=== PATIENT | female | born 1960 | race Caucasian/White ===

== ENCOUNTER 2024-08-20 17:24 | Emergency (ER) | payer OTHER, SELFPAY ==
[2024-08-20] MEDS ORDERED: MAGNES/ALUMIN/SIMET 30ML UCUP ONE (18:49)
[2024-08-20] MEDS ORDERED: FAMOTIDINE 20 MG/2 ML VIAL IV ONE (18:49)
[2024-08-20] MEDS ORDERED: LIDOCAINE VISCOUS 2% 10ML ORAL SOLN ONE (18:50)
[2024-08-20 18:53] LABS: Absolute Basophils 0.1 K/uL (0-0.5); Absolute Eosinophils 0.1 K/uL (0-0.5); Absolute Lymphocytes (CBC) 2.5 K/uL (0.7-4.9); Absolute Monocytes 0.9 K/uL (0.1-1.3); Absolute Neutrophil 6.7 K/uL (1.8-8.0); Eosinophils % 1.3 % (0-4.4); Hematocrit 43.5 % (36.0-45.0); Lymphocytes % 24.4 % (15.3-44.8); MCHC 34.5 g/dL (32.0-36.0); MCV 101.4 fL (80-100); MPV 7.1 fL (7.6-11.3); Neutrophils % 64.3 % (41.7-73.7); Platelets 543 thou/uL (152-406); RBC Red Blood Cell Count 4.29 M/uL (3.86-4.86); Red Cell Distribution Width 13.5 % (12.1-15.2)
[2024-08-20 19:00] LABS: PT Prothrombin Time 11.3 SECONDS (10-13.0); Protime INR 0.99
--- NOTE | 2024-08-20 19:04 | RAD REPORT ---
EXAMINATION: ONE VIEW CHEST XR CLINICAL INDICATION: Female, 64 years old.,CHEST PAIN TECHNIQUE: Frontal chest projection is submitted. Examination is limited by patient positioning and t echnique. COMPARISON: No prior exam. FINDINGS: The lungs are well inflated and clear. No pneumothorax or sizable effusion. The heart is normal in s ize. Mediastinal contours are unremarkable. IMPRESSION: No acute intrathoracic abnormalities.
[2024-08-20 19:14] LABS: ALT/SGPT 23 U/L (13-56); AST/SGOT 11 U/L (15-37); Albumin 3.8 g/dL (3.4-5.0); Albumin/Globulin Ratio 0.9 (1.1-1.8); Alkaline Phosphatase 72 U/L (45-117); Anion Gap 8.8 mEq/L (5.0-15.0); BUN Blood Urea Nitrogen 14 mg/dL (7-18); Bicarbonate 26 mEq/L (21-32); Bilirubin Total 0.3 mg/dL (0.2-1.0); Globulin 4.1 g/dL (2.3-3.5); Glomerular Filtration Rate 77 ml/min (=/>90); Glucose Level 96 mg/dL (74-106); NT PRO-BNP 24 pg/mL (<125); Potassium 3.8 mEq/L (3.5-5.1); Protein, Total 7.9 g/dL (6.4-8.2); Sodium Level 135 mEq/L (136-145)
[2024-08-20 19:20] LABS: Bilirubin Direct < 0.2 mg/dL (0-0.2); Bilirubin Indirect, Calculated 0.1 mg/dL (0.2-0.8)
--- NOTE | 2024-08-20 19:22 | RAD REPORT ---
EXAMINATION: US Abdomen Exam Limited CLINICAL HISTORY: [facility] chest pain Bed Name: 10 COMPARISON: None. TECHNIQUE: Limited upper abdominal grayscale and color flow sonographic images. FINDINGS: Gallbladder: Small isoechoic polyp along the antidependent wall measuring 6 mm. No gallstones. No wal l thickening or pericholecystic fluid. Suboptimal distention limits evaluation. Negative sonographic Henry sign. Bile ducts: No intrahepatic or extrahepatic biliary dilatation. Common bile duct measures 5 mm. Liver: Visualized portions of the liver demonstrate normal echogenicity with no suspicious findings. Fluid: No ascites. IMPRESSION: Small gallbladder polyp. No cholelithiasis or findings of acute cholecystitis.
--- NOTE | 2024-08-20 19:30 | EDPHYS ---
Physician Documentation [facility] Name: Kristel Patel Age: 64 yrs Sex: Female : 1960 Arrival Date: 08/20/2024 Time: 17:24 Bed 4 Private MD: ED Physician Vik Fulton HPI: 08/20 18:33 This 64 yrs old Female presents to ER via Ambulatory with complaints of Chest Pain. rn 18:33 The patient or guardian reports chest pain that is located primarily in the substernal rn area. Onset: 1 month(s) ago. Patient reports sent in by PCP for chest pain. Has been having intermittent episodes of chest pain, substernal, nonradiating for about a month. Constant today since 3 PM. No fever or chills. Patient is a smoker and has hypertension. No known cardiac problems. Denies abdominal pain. Patient does report she bought some antacid/GI medication but not sure if it has been helping. Denies pain after eating.. Historical: - Allergies: 17:38 Doxycycline; ll1 17:38 Keflex; ll1 - PMHx: 17:38 Hypertensive disorder; Hypothyroidism; ll1 - PSHx: 17:38 hysterectomy; bladder suspension; ll1 - Immunization history:: Adult Immunizations up to date. - Infectious Disease History:: Denies. - Social history:: Smoking status: Patient reports the use of cigarette tobacco products, smokes one-half pack cigarettes per day, smokes one pack cigarettes per day. - Family history:: not pertinent. - Hospitalizations: : No recent hospitalization is reported. ROS: 18:34 Constitutional: Negative for fever, chills, and weight loss, Neck: Negative for injury, rn pain, and swelling, Cardiovascular: Positive for chest pain Respiratory: Negative for shortness of breath, cough, wheezing, and pleuritic chest pain, Abdomen/GI: Negative for abdominal pain, nausea, vomiting, diarrhea, and constipation, Back: Negative for injury and pain, MS/Extremity: Negative for injury and deformity, Skin: Negative for injury, rash, and discoloration, Neuro: Negative for headache, weakness, numbness, tingling, and seizure, Exam: 18:34 Constitutional: This is a well developed, well nourished patient who is awake, alert, rn and in no acute distress. Cardiovascular: Regular rate and rhythm. No pulse deficits. Respiratory: Clear bilateral breath sounds. No retractions Abdomen/GI: Soft, nontender MS/ Extremity: Pulses equal, no cyanosis. Neuro: Awake and alert, GCS 15 18:45 ECG was reviewed by the Attending Physician. rn Vital Signs: 17:39 BP 156 / 100; Pulse 70; Resp 18; Temp 97.9; Pulse Ox 100% ; Weight 54.88 kg; Height 5 ll1 ft. 3 in. ; Pain 8/10; 19:00 BP 166 / 94; Pulse 71; Resp 16; Temp 98.2; Pulse Ox 96% ; me1 17:39 Body Mass Index 21.43 (54.88 kg, 160.02 cm) ll1 17:39 Pain Scale: Adult ll1 MDM: 17:33 Medical Screening Exam initiated rn 19:27 Differential diagnosis: acute myocardial infarction, acute pericarditis, anxiety, rn coronary artery disease costochondritis, esophagitis, gastritis, gastroesophageal reflux disease (GERD), pleurisy, pneumothorax, stable angina. HEART Score: History: Slightly Suspicious (0), ECG: Non specific repolarization disturbance / LBTB / PM (1), Age: > 45 and < 65 years (1), Risk Factors: 1 or 2 risk factors (1), Troponin: < or = 1 x Normal Limit (0), Total Score = 3. Data reviewed: vital signs, nurses notes, lab test result(s), EKG, radiologic studies, plain films, and as a result, I will. Data reviewed: and as a result, I will admit patient. Consideration of Admission/Observation Escalation of care including admission/observation considered. Counseling: I had a detailed discussion with the patient and/or guardian regarding the historical points, exam findings, and any diagnostic results supporting the discharge/admit diagnosis, lab results, radiology results, the need for further work-up and treatment in the hospital. ED course: Patient states chest pain completely resolved after GI cocktail. States pretty much worked instantly. Troponin is negative and ECG without ischemia. Recommended admission for full cardiac workup and patient declines. Patient does not want to stay in the hospital. She request antacid medication and will make cardiology appointment as outpatient. Return precautions given and understood. Patient understands risk of going home without further workup and admission.. 08/20 17:35 Order name: Basic Metabolic Panel; Complete Time: 19:21 rn 08/20 17:35 Order name: CBC with Diff; Complete Time: 19:21 rn 08/20 17:35 Order name: LFT's; Complete Time: 19:21 rn 08/20 17:35 Order name: NT PRO-BNP; Complete Time: 19:21 rn 08/20 17:35 Order name: PT-INR; Complete Time: 19:21 rn 08/20 17:35 Order name: Troponin HS; Complete Time: 19:21 rn 08/20 17:35 Order name: XRAY Chest (1 view); Complete Time: 19:21 rn 08/20 17:49 Order name: US Abdomen Limited; Complete Time: 19:22 ll1 08/20 17:35 Order name: EKG; Complete Time: 17:36 rn 08/20 17:35 Order name: Cardiac monitoring; Complete Time: 18:53 rn 08/20 17:35 Order name: EKG - Nurse/Tech; Complete Time: 17:46 rn 08/20 17:35 Order name: IV Saline Lock; Complete Time: 18:47 rn 08/20 17:35 Order name: Labs collected and sent; Complete Time: 18:47 rn 08/20 17:35 Order name: O2 Per Protocol; Complete Time: 18:47 rn 08/20 17:35 Order name: O2 Sat Monitoring; Complete Time: 18:47 rn EC:45 Rate is 79 beats/min. Rhythm is regular. QRS [place] is Normal. [place] interval is normal. QRS rn interval is normal. QT interval is normal. No Q waves. T waves are Normal. No ST changes noted. Clinical impression: NSR w/ Non-specific ST/T Changes. Interpreted by me. Reviewed by me. Administered Medications: 18:53 Drug: GI Cocktail without - (Maalox PO 30 ml, Lidocaine Mucous Membrane 2 % 15 me1 ml) PO once Route: PO; 19:27 Follow up: Response: No adverse reaction; Pain is decreased me1 18:53 Drug: Famotidine IVP 10 mg IVP once; dilute with 10 mL 0.9% NaCl; give over 2 minutes me1 Route: IVP; Site: right antecubital; 19:27 Follow up: Response: No adverse reaction me1 Disposition Summary: 08/20/24 19:29 Discharge Ordered Notes: Location: Home rn Problem: new rn Symptoms: have improved rn Condition: Stable rn Diagnosis - Chest pain, unspecified rn Followup: rn - With: Rishi Prasad MD - When: As needed - Reason: Recheck today's complaints, Re-evaluation by your physician Discharge Instructions: - Discharge Summary Sheet rn - Nonspecific Chest Pain, Adult rn Forms: - Medication Reconciliation Form rn - Antibiotic external auditor - Prescription Opioid Use rn - Patient Portal Instructions rn - Leadership Thank You Letter rn Prescriptions: - Protonix 40 mg Oral Tablet - take 1 tablet ORAL route once daily; 30 tablet; Refills: 0, Product Selection rn Permitted Signatures: Dispatcher [employer] EDIA Vik Fulton MD MD rn Lewis, Lynsay RN RN ll1 Aisha Varghese RN RN me1 Corrections: (The following items were deleted from the chart) 17:36 17:36 BASIC METABOLIC PANEL+C.LAB.BRZ ordered. EDIA EDMS 17:36 17:36 CBC+H.LAB.BRZ ordered. EDIA EDMS 17:36 17:36 HEPATIC FUNCTION+C.LAB.BRZ ordered. EDMS EDMS 17:36 17:36 PROBNP+C.LAB.BRZ ordered. EDMS EDMS 17:36 17:36 PROTIME (+INR)+COAG.LAB.BRZ ordered. EDIA EDMS 17:36 17:36 Troponin High Sensitivity+C.LAB.BRZ ordered. EDMS EDMS 18:34 18:34 Constitutional: Negative for fever, chills, and weight loss, Cardiovascular: rn Positive for chest pain Respiratory: Negative for shortness of breath, cough, wheezing, and pleuritic chest pain, Abdomen/GI: Negative for abdominal pain, nausea, vomiting, diarrhea, and constipation, MS/Extremity: Negative for injury and deformity, Skin: Negative for injury, rash, and discoloration, Neuro: Negative for headache, weakness, numbness, tingling, and seizure, rn
--- NOTE | 2024-08-20 19:30 | ER ---
Nurse's Notes [facility] Name: Kristel Patel Age: 64 yrs Sex: Female : 1960 Arrival Date: 08/20/2024 Time: 17:24 Bed 4 Private MD: Diagnosis: Chest pain, unspecified Presentation: 08/20 17:39 Chief complaint: Patient states: CP for 1 month, more constant today. Coronavirus ll1 screen: Client denies travel out of the [place] in the last 14 days. At this time, the client does not indicate any symptoms associated with coronavirus-19. Ebola Screen: Patient denies travel to an Ebola-affected area in the 21 days before illness onset. Initial Sepsis Screen: Does the patient meet any 2 criteria? No. Patient's initial sepsis screen is negative. Does the patient have a suspected source of infection? No. Patient's initial sepsis screen is negative. Risk Assessment: Do you want to hurt yourself or someone else? Patient reports no desire to harm self or others. Onset of symptoms was July 21, 2024. 17:39 Method Of Arrival: Ambulatory ll1 17:39 Acuity: TYRON 3 ll1 Triage Assessment: 17:46 General: Appears uncomfortable, Behavior is calm, cooperative, appropriate for age. ll1 Pain: Complains of pain in chest Pain currently is 8 out of 10 on a pain scale. Quality of pain is described as sharp. Cardiovascular: Reports chest pain, Chest pain is described as mild, quality is sharp, radiates back. Historical: - Allergies: 17:38 Doxycycline; ll1 17:38 Keflex; ll1 - PMHx: 17:38 Hypertensive disorder; Hypothyroidism; ll1 - PSHx: 17:38 hysterectomy; bladder suspension; ll1 - Immunization history:: Adult Immunizations up to date. - Infectious Disease History:: Denies. - Social history:: Smoking status: Patient reports the use of cigarette tobacco products, smokes one-half pack cigarettes per day, smokes one pack cigarettes per day. - Family history:: not pertinent. - Hospitalizations: : No recent hospitalization is reported. Screenin:15 [facility] ED Fall Risk Assessment (Adult) History of falling in the last 3 months, me1 including since admission No falls in past 3 months (0 pts) Confusion or Disorientation No (0 pts) Intoxicated or Sedated No (0 pts) Impaired Gait No (0 pts) Mobility Assist Device Used No (0 pt) Altered Elimination No (0 pt) Score/Fall Risk Level 0 - 2 = Low Risk Maintained a safe environment, Provided non-skid footwear, Hourly rounding (assess needs \T\ fall precautionary measures) done. Abuse screen: Denies threats or abuse. Nutritional screening: No deficits noted. Tuberculosis screening: No symptoms or risk factors identified. Assessment: 18:11 Reassessment: No changes from previously documented assessment. Patient and/or family ll1 updated on plan of care and expected duration. Pain level reassessed. 18:15 General: Appears uncomfortable, well groomed, well developed, well nourished, Behavior me1 is calm, cooperative, appropriate for age, Reports CP for 1 month, more constant today. Pain: Complains of pain in epigastric area Pain does not radiate. Pain currently is 5 out of 10 on a pain scale. at worst was 10 out of 10 on a pain scale. Quality of pain is described as burning, Pain began gradually, Is continuous. Neuro: Level of Consciousness is awake, alert, obeys commands, Oriented to person, place, time, situation, Appropriate for age. Cardiovascular: Patient's skin is warm and dry. Cardiovascular: Reports chest pain. Respiratory: Airway is patent Respiratory effort is even, unlabored, Respiratory pattern is regular, symmetrical. Respiratory: GI: Reports upper abdominal pain, bloating, indigestion. : No signs and/or symptoms were reported regarding the genitourinary system. EENT: No signs and/or symptoms were reported regarding the EENT system. Derm: Skin is intact, is healthy with good turgor, Skin is pink, warm \T\ dry. Musculoskeletal: No signs and/or symptoms reported regarding the musculoskeletal system. Vital Signs: 17:39 BP 156 / 100; Pulse 70; Resp 18; Temp 97.9; Pulse Ox 100% ; Weight 54.88 kg; Height 5 ll1 ft. 3 in. ; Pain 8/10; 19:00 BP 166 / 94; Pulse 71; Resp 16; Temp 98.2; Pulse Ox 96% ; me1 17:39 Body Mass Index 21.43 (54.88 kg, 160.02 cm) [facility] 17:39 Pain Scale: Adult ll1 ED Course: 17:29 Patient arrived in ED. gl 17:33 Vik Fulton MD is Attending Physician. rn 17:40 Triage completed. ll1 17:46 Arm band placed on. EKG completed in triage. Results shown to MD. ll1 17:59 XRAY Chest (1 view) In Process Unspecified. EDMS 18:11 Patient placed in an exam room, on a stretcher. ll1 18:15 Patient has correct armband on for positive identification. Bed in low position. Call me1 light in reach. Side rails up X 1. Provided Education on: POC. Verbalized understanding.. Client placed on continuous cardiac and pulse oximetry monitoring. NIBP monitoring applied. clinical research monitor on. Pulse ox on. NIBP on. 18:15 No provider procedures requiring assistance completed. Patient maintains SpO2 me1 saturation greater than 95% on room air. 18:27 Daysi Bragg, RN is Primary Nurse. ph 18:29 US Abdomen Limited In Process Unspecified. EDMS 18:47 Basic Metabolic Panel Sent. me1 18:47 CBC with Diff Sent. me1 18:48 LFT's Sent. me1 18:48 NT PRO-BNP Sent. me1 18:48 PT-INR Sent. me1 18:48 Troponin HS Sent. me1 19:27 Aisha Varghese, RN is Primary Nurse. me1 19:29 Rishi Prasad MD is Referral Physician. rn 19:36 IV discontinued, intact, bleeding controlled, No redness/swelling at site. Pressure me1 dressing applied. Administered Medications: 18:53 Drug: GI Cocktail without - (Maalox PO 30 ml, Lidocaine Mucous Membrane 2 % 15 me1 ml) PO once Route: PO; 19:27 Follow up: Response: No adverse reaction; Pain is decreased me1 18:53 Drug: Famotidine IVP 10 mg IVP once; dilute with 10 mL 0.9% NaCl; give over 2 minutes me1 Route: IVP; Site: right antecubital; 19:27 Follow up: Response: No adverse reaction me1 Medication: 18:15 VIS not applicable for this client. me1 Outcome: 19:29 Discharge ordered by . rn 19:36 Discharged to home ambulatory, me1 19:36 Condition: stable 19:36 Discharge instructions given to patient, Instructed on discharge instructions, follow up and referral plans. medication usage, Demonstrated understanding of instructions, follow-up care, medications, Prescriptions given X 1, 19:36 Patient left the ED. me1 Signatures: Dispatcher [employer] EDVik Baker MD MD rn Hall, Patricia, RN RN ph Lewis, Lynsay, RN RN ll1 Aisha Varghese RN RN me1 Zora Gloria, Reg Reg gl Corrections: (The following items were deleted from the chart) 19:28 17:39 Chief complaint: Patient states: CP for 1 month, more constant today. ll1 me1
[2024-08-21 02:18] VITALS: BP 166/94; TEMP 98.2; O2SAT 96
--- NOTE | 2024-08-22 11:46 | EKG ---
Test Date: 2024-08-20 Test Time: 17:44:54 Credit Compliance Officer: LML MEASUREMENT RESULTS: Intervals: Rate: 79 DC: 148 QRSD: 80 QT: 354 QTc: 405 [place]: P: 70 DC: 148 QRS: 57 T: 60 INTERPRETIVE STATEMENTS: Normal sinus rhythm Right atrial enlargement Borderline ECG No previous ECG available for comparison Electronically Signed On 08-22-24 11:42:36 CDT by Ravinder Baker
== END 2024-08-20 19:36 | disposition home or self-care (01) ==
LOC: ER 17:24
DX: R07.9 Chest pain, unspecified (principal); I10 Essential (primary) hypertension; F17.210 Nicotine dependence, cigarettes, uncomplicated
CPT/HCPCS: 36415; 71045; 76705; 80048; 80076; 83880; 84484; 85025; 85610; 93005; 96374; 99285